=== PATIENT | female | born 1945 | race Caucasian/White ===

== ENCOUNTER 2017-04-11 18:47 | Observation (INO) | payer MEDICARE ==
[2017-04-11] MEDS ORDERED: HYDROmorphone 1 MG/ML 1 ML SYRINGE IVP STA (19:29)
[2017-04-11] MEDS ORDERED: ONDANSETRON 4 MG/2 ML VIAL IVP STA (19:29)
[2017-04-11 19:40] LABS: Basophils # (A) 0.1 k/uL (0-0.2); Basophils % (A) 1 %; CH 29.2; CHCM 31.7; Eosinophils # (A) 0.6 k/uL (0-0.7); Eosinophils % (A) 6 %; HCT 38.5 % (34.0-46.0); HDW 2.23; HGB 12.4 gm/dL (11.4-16.0); Luc % (Auto) 2; Lymphocytes # (A) 1.2 k/uL (1.0-4.8); Lymphocytes % (A) 13 %; MCH 29.8 pg (25.0-35.0); MCHC 32.1 g/dL (31.0-37.0); MCV 92.8 fL (80.0-100.0); Mean Platelet Volume 8.2; Monocytes # (A) 0.4 k/uL (0-1.0); Monocytes % (A) 4 %; Neutrophils # (A) 6.8 k/uL (1.3-7.7); Neutrophils % (A) 74 %; RBC 4.15 m/uL (3.80-5.40); RDW 13.6 % (11.5-15.5); WBC 9.2 k/uL (3.8-10.6); WBC (Perox) 9.58
[2017-04-11 19:49] LABS: Partial Thromboplastin Time 22.6 sec (22.0-30.0); Prothrombin Time 10.4 sec (9.0-12.0)
--- NOTE | 2017-04-11 20:05 | XR ---
EXAMINATION TYPE: XR chest 2V DATE OF EXAM: 04/11/2017 COMPARISON: 05/29/2016 HISTORY: Chest pain today while resting TECHNIQUE: Frontal and lateral views of the chest are obtained. FINDINGS: There is no focal air space opacity, pleural effusion, or pneumothorax seen. The cardiac silhouette size is within normal limits. The osseous structures are intact. Mild degenerative bunch es are appreciated of the acromio clavicular joint and thoracic spine. IMPRESSION: No acute cardiopulmonary process.
[2017-04-11 20:13] LABS: Calcium 9.6 mg/dL (8.4-10.2); Magnesium 1.6 mg/dL (1.6-2.3); Potassium 5.5 mmol/L (3.5-5.1); Total Bilirubin 0.5 mg/dL (0.2-1.3); Total Protein 7.3 g/dL (6.3-8.2)
--- NOTE | 2017-04-11 20:13 | ED ---
General Adult HPI - General Chief complaint: Chest Pain Stated complaint: CHEST PAIN Time Seen by Provider: 04/11/17 19:27 Source: patient, RN notes reviewed, old records reviewed Mode of arrival: wheelchair Limitations: no limitations - History of Present Illness Initial comments: This is a 72-year-old female ER for evaluation of chest pain. He doesn't from diabetes, no prior heart disease, no prior heart attacks. No recent cardiac evaluation. Patient denies fever cough or congestion, aching does have continued just appeared chest pains or [place] while sleeping, is no improvement. Patient concerned that she may be having a heart attack - Related Data Home Medications Medication Instructions Recorded Confirmed Aspirin [Adult Low Dose Aspirin EC] 81 mg PO DAILY 05/28/16 04/11/17 Insulin Detemir [Levemir] 5 - 10 unit SQ HS 05/28/16 04/11/17 Lisinopril [Zestril] 10 mg PO DAILY 05/28/16 04/11/17 metFORMIN HCL 1,000 mg PO AC-BRKFST 05/28/16 04/11/17 metFORMIN HCL [Glucophage] 500 mg PO AC-SUPPER 05/28/16 04/11/17 Insulin Aspart [NovoLOG Flexpen] 2 - 4 units SQ AC-TID PRN 05/29/16 04/11/17 Multivitamins, Thera [Multivitamin] 1 tab PO DAILY 05/29/16 04/11/17 Vitamin B Complex 1 cap PO DAILY 05/29/16 04/11/17 Atenolol [Tenormin] 50 mg PO DAILY 04/11/17 04/11/17 Ferrous Sulfate [Feosol] 325 mg PO DAILY 04/11/17 04/11/17 Allergies Allergy/AdvReac Type Severity Reaction Status Date / Time Sulfa (Sulfonamide Allergy Rash/Hives Verified 04/11/17 19:47 Antibiotics) Review of Systems ROS Statement: Those systems with pertinent positive or pertinent negative responses have been documented in the HPI. ROS Other: All systems not noted in ROS Statement are negative. Past Medical History Past Medical History: Cancer, Diabetes Mellitus, GERD/Reflux, Hyperlipidemia, Hypertension Additional Past Medical History / Comment(s): chronic back pain, DIVERTICULOSIS( PER COLONOSCOPY), KIDNEY STONE 2012(PASSED IT),? [place]- PT STATED THAT [address] HAD DONE AN EKG ON HER AND ASKED HER -WHEN DIDYOU HAVE A HEART ATTACK? . UTERINE CA HAD SX ONLY, ECZEMA ON HANDS. RECENT DIFFICULTY SWALLOWING CAME IN AND HAD LAP BAND LOOSED History of Any Multi-Drug Resistant Organisms: None Reported Past Surgical History: Back Surgery, Bariatric Surgery, Hysterectomy, Tonsillectomy Additional Past Surgical History / Comment(s): lap band, carpal tunnel,LT ear drum surgery, cervical fusion, COLONOSCOPY 2012, TOTAL HYSTERECTOMY, D/T CANCER.SUE CATARACTS. BARIUM SWALLOW 05-28-16. Past Anesthesia/Blood Transfusion Reactions: No Reported Reaction Past Psychological History: No Psychological Hx Reported Additional Psychological History / Comment(s): PT IS LIVES AT HOME WITH HER SPOUSE. IS INDEPENDANT. IS RETIRED-USED TO [employer]. Smoking Status: Former smoker Past Alcohol Use History: None Reported Additional Past Alcohol Use History / Comment(s): STARTED SMOKING AT AGE 14 QUIT AT AGE 37, WAS SMOKING <1PPD Past Drug Use History: None Reported - Past Family History Father Family Medical History: Diabetes Mellitus Additional Family Medical History / Comment(s): PACEMAKER Mother Family Medical History: Dementia Additional Family Medical History / Comment(s): ALZHEIMERS General Exam Limitations: no limitations General appearance: alert, in no apparent distress Head exam: Present: atraumatic, normocephalic, normal inspection Eye exam: Present: normal appearance, PERRL, EOMI. Absent: scleral icterus, conjunctival injection, periorbital swelling ENT exam: Present: normal exam, mucous membranes moist Neck exam: Present: normal inspection. Absent: tenderness, meningismus, lymphadenopathy Respiratory exam: Present: normal lung sounds bilaterally. Absent: respiratory distress, wheezes, rales, rhonchi, stridor Cardiovascular Exam: Present: regular rate, normal rhythm, normal heart sounds. Absent: systolic murmur, diastolic murmur, rubs, gallop, clicks GI/Abdominal exam: Present: soft, normal bowel sounds. Absent: distended, tenderness, guarding, rebound, rigid Extremities exam: Present: normal inspection, full ROM, normal capillary refill. Absent: tenderness, pedal edema, joint swelling, calf tenderness Back exam: Present: normal inspection Neurological exam: Present: alert, oriented X3, CN II-XII intact Psychiatric exam: Present: normal affect, normal mood Skin exam: Present: warm, dry, intact, normal color. Absent: rash Course Vital Signs 04/11/17 04/11/17 18:51 20:36 Temperature 97.2 F L Pulse Rate 68 60 Respiratory 18 16 Rate Blood Pressure 110/58 108/54 O2 Sat by Pulse 99 100 Oximetry - Reevaluation(s) Reevaluation #1: 04/11/17 21:12 Patient is in no acute distress, no diaphoresis or shortness of breath EKG Findings - EKG Comments: EKG Findings:: EKG shows normal sinus rhythm rate of 54 DE 172, QRS 80, QTC 438 Medical Decision Making - Medical Decision Making Female year with history of diabetes coming in with chest pain today. No prior cardiac evaluation. Patient having chest pain for a day and a half, unable to sleep last night secondary to pain. EKGs were negative patient will be admitted for cardiac observation - Lab Data Result diagrams: 04/11/17 19:26 04/11/17 19:26 Lab Results 04/11/17 04/11/17 04/11/17 Range/Units 19:26 19:26 19:26 WBC 9.2 (3.8-10.6) k/uL RBC 4.15 (3.80-5.40) m/uL Hgb 12.4 (11.4-16.0) gm/dL Hct 38.5 (34.0-46.0) % MCV 92.8 (80.0-100.0) fL MCH 29.8 (25.0-35.0) pg MCHC 32.1 (31.0-37.0) g/dL RDW 13.6 (11.5-15.5) % Plt Count 261 (150-450) k/uL Neutrophils % 74 % Lymphocytes % 13 % Monocytes % 4 % Eosinophils % 6 % Basophils % 1 % Neutrophils # 6.8 (1.3-7.7) k/uL Lymphocytes # 1.2 (1.0-4.8) k/uL Monocytes # 0.4 (0-1.0) k/uL Eosinophils # 0.6 (0-0.7) k/uL Basophils # 0.1 (0-0.2) k/uL PT (9.0-12.0) sec INR (<1.1) APTT (22.0-30.0) sec Sodium 142 (137-145) mmol/L Potassium 5.5 H (3.5-5.1) mmol/L Chloride 111 H (98-107) mmol/L Carbon Dioxide 19 L (22-30) mmol/L Anion Gap 12 mmol/L BUN 32 H (7-17) mg/dL Creatinine 1.25 H (0.52-1.04) mg/dL Est GFR (MDRD) Af Amer 51 (>60 ml/min/1.73 sqM) Est GFR (MDRD) Non-Af 42 (>60 ml/min/1.73 sqM) Glucose 91 (74-99) mg/dL Calcium 9.6 (8.4-10.2) mg/dL Magnesium 1.6 (1.6-2.3) mg/dL Total Bilirubin 0.5 (0.2-1.3) mg/dL AST 30 (14-36) U/L ALT 30 (9-52) U/L Alkaline Phosphatase 59 (38-126) U/L Total Creatine Kinase 124 (30-135) U/L CK-MB (CK-2) 1.2 (0.0-2.4) ng/mL CK-MB (CK-2) Rel Index 1.0 Troponin I <0.012 (0.000-0.034) ng/mL NT-Pro-B Natriuret Pep pg/mL Total Protein 7.3 (6.3-8.2) g/dL Albumin 4.1 (3.5-5.0) g/dL Lipase 278 (23-300) U/L 04/11/17 04/11/17 Range/Units 19:26 19:26 WBC (3.8-10.6) k/uL RBC (3.80-5.40) m/uL Hgb (11.4-16.0) gm/dL Hct (34.0-46.0) % MCV (80.0-100.0) fL MCH (25.0-35.0) pg MCHC (31.0-37.0) g/dL RDW (11.5-15.5) % Plt Count (150-450) k/uL Neutrophils % % Lymphocytes % % Monocytes % % Eosinophils % % Basophils % % Neutrophils # (1.3-7.7) k/uL Lymphocytes # (1.0-4.8) k/uL Monocytes # (0-1.0) k/uL Eosinophils # (0-0.7) k/uL Basophils # (0-0.2) k/uL PT 10.4 (9.0-12.0) sec INR 1.0 (<1.1) APTT 22.6 (22.0-30.0) sec Sodium (137-145) mmol/L Potassium (3.5-5.1) mmol/L Chloride (98-107) mmol/L Carbon Dioxide (22-30) mmol/L Anion Gap mmol/L BUN (7-17) mg/dL Creatinine (0.52-1.04) mg/dL Est GFR (MDRD) Af Amer (>60 ml/min/1.73 sqM) Est GFR (MDRD) Non-Af (>60 ml/min/1.73 sqM) Glucose (74-99) mg/dL Calcium (8.4-10.2) mg/dL Magnesium (1.6-2.3) mg/dL Total Bilirubin (0.2-1.3) mg/dL AST (14-36) U/L ALT (9-52) U/L Alkaline Phosphatase (38-126) U/L Total Creatine Kinase (30-135) U/L CK-MB (CK-2) (0.0-2.4) ng/mL CK-MB (CK-2) Rel Index Troponin I (0.000-0.034) ng/mL NT-Pro-B Natriuret Pep 195 pg/mL Total Protein (6.3-8.2) g/dL Albumin (3.5-5.0) g/dL Lipase (23-300) U/L - Radiology Data Radiology results: report reviewed (Chest x-ray is negative for acute disease), image reviewed Critical Care Time Critical Care Time: Yes Total Critical Care Time: 31 Disposition Clinical Impression: Unstable angina pectoris, Chest pain Disposition: ADMITTED IP TO THIS [facility] Condition: Good Instructions: Chest Pain (ED) Referrals: Wendi Bonner MD [Primary Care Provider] - 1-2 days
[2017-04-11 20:18] LABS: Creatine Kinase 124 U/L (30-135)
[2017-04-11 20:31] LABS: Creatine Kinase MB 1.2 ng/mL (0.0-2.4); Troponin I <0.012 ng/mL (0.000-0.034)
[2017-04-11 20:38] VITALS: RESP 16
[2017-04-11] MEDS ORDERED: NITROGLYCERIN SL TABS 0.4 MG TAB SUBLINGUAL PRN (21:06)
[2017-04-11] MEDS ORDERED: ASPIRIN 81 MG CHEW PO STA (21:06)
[2017-04-11] MEDS ORDERED: HEPARIN SODIUM,PORCINE 5,000 UNIT/ML 1 ML VIAL IV ONE (21:06)
[2017-04-11] MEDS ORDERED: HEPARIN SODIUM,PORCINE 5,000 UNIT/ML 1 ML VIAL IV PRN (21:06)
[2017-04-11] MEDS ORDERED: HEPARIN SODIUM,PORCINE/D5W PMX 25,000 UNIT in DEXTROSE/WATER 1 500ML.BAG IV SCH (21:15)
[2017-04-11] MEDS ORDERED: SODIUM CHLORIDE 0.9% 1,000 ML IV SCH (21:15)
[2017-04-11] MEDS ORDERED: INSULIN DETEMIR 100 UNIT/ML 10 ML VIAL SQ SCH (23:00)
[2017-04-11 23:11] LABS: Glucose,Whole Blood 106 mg/dL (75-99)
[2017-04-12 02:43] LABS: Mean Platelet Volume 8.1
[2017-04-12 03:07] LABS: Creatine Kinase 92 U/L (30-135)
[2017-04-12 03:20] LABS: Creatine Kinase MB 1.5 ng/mL (0.0-2.4); Troponin I <0.012 ng/mL (0.000-0.034)
[2017-04-12 03:47] LABS: Cholesterol 229 mg/dL (<200); HDL Cholesterol 40 mg/dL (40-60); Triglycerides 260 mg/dL (<150)
[2017-04-12 06:58] LABS: Glucose,Whole Blood 87 mg/dL (75-99)
[2017-04-12] MEDS ORDERED: metFORMIN 500 MG TAB PO SCH ×2 (07:30→17:30)
[2017-04-12] MEDS: INSULIN LISPRO (humaLOG) 300 UNIT/3 ML VIAL SQ SCH ×2 (08:05→12:05)
--- NOTE | 2017-04-12 08:36 | CONS ---
DATE OF CONSULTATION: CHIEF COMPLAINT: Chest pain. Yuki is a 72-year-old lady with history of hypertension and [id number] diabetes who was admitted to hospital with chest pain. She describes it as a sharp, left-sided chest pain. It came on after she was working in the garden yesterday. She has done unusual physical activity. It seem musculoskeletal, got worse with movements and resolved with rest. Patient had chest pain a year ago and underwent a Lexiscan at that time that showed normal myocardial perfusion function. Her EKG shows sinus rhythm with left bundle branch block. Two sets of cardiac enzymes have been negative. Given the atypical nature of her chest pain and the fact that she had a stress test within the last one year, I believe she does not require any further cardiac workup at this time. She is stable to be discharged home and follow up with her own primary care physician and set up an appointment with Cardiology in 6 to 8 weeks' time. Past medical history is significant for diabetes, hypertension. Medications include Glucophage, Levemir, iron, multivitamin, Zestril, Tenormin and aspirin. Allergic to SULFA and SHELLFISH. Family history is negative for premature coronary artery disease. Social history is negative for smoking, EtOH abuse, or drug abuse. REVIEW OF SYSTEMS: HEENT: Unremarkable. CARDIAC: As described above. RESPIRATORY: Negative. GI: Negative. GENITOURINARY: Negative. ALLERGY/IMMUNOLOGY: Negative. MUSCULOSKELETAL: Significant for arthritis. PSYCHOSOCIAL: Negative. ENDOCRINE: Negative. HEMATOLOGICAL: Negative. DERMATOLOGY: Negative. CONSTITUTIONAL: Negative. ONCOLOGICAL: Negative. The rest of the system review is not relevant. On exam, comfortable at rest. Vital signs are stable. There is no jugular venous distention. Carotid upstroke is normal. There is no bruit. Chest exam reveals good air entry bilaterally. Heart exam reveals first and second heart sounds. No gallop. No murmur, no rub. Abdomen is soft, nontender. Exam of the extremities did not reveal edema. Peripheral pulses are felt. INFORMATICS PHYSICIAN LIAISON exam did not reveal focal neurological deficits. ASSESSMENT: Chest pain, atypical, probably musculoskeletal. Had a negative stress test a year ago, does not require further workup at this time. Patient can be discharged home.
[2017-04-12 08:43] LABS: Creatine Kinase 99 U/L (30-135)
[2017-04-12 08:57] LABS: Creatine Kinase MB 1.2 ng/mL (0.0-2.4); Troponin I <0.012 ng/mL (0.000-0.034)
[2017-04-12] MEDS ORDERED: ATENOLOL 50 MG TAB PO SCH (09:00)
[2017-04-12] MEDS ORDERED: FERROUS SULFATE 325 MG TAB PO SCH (09:00)
[2017-04-12] MEDS ORDERED: LISINOPRIL 10 MG TAB PO SCH (09:00)
[2017-04-12] MEDS ORDERED: MULTIVITAMINS, THERA 1 EACH TAB PO SCH (09:00)
[2017-04-12] MEDS ORDERED: ASPIRIN 325 MG TAB PO SCH (09:00)
[2017-04-12 10:00] LABS: Anion Gap 9 mmol/L; Blood Urea Nitrogen 28 mg/dL (7-17); Calcium 9.6 mg/dL (8.4-10.2); Carbon Dioxide 25 mmol/L (22-30); Chloride 109 mmol/L (98-107); Glucose 114 mg/dL (74-99); Non-African American GFR(MDRD) 53 (>60 ml/min/1.73 sqM); Potassium 4.7 mmol/L (3.5-5.1); Sodium 143 mmol/L (137-145)
[2017-04-12 10:01] LABS: Basophils # (A) 0.1 k/uL (0-0.2); Basophils % (A) 1 %; CH 28.9; CHCM 30.5; Eosinophils # (A) 0.6 k/uL (0-0.7); Eosinophils % (A) 9 %; HCT 39.4 % (34.0-46.0); HDW 2.33; HGB 12.6 gm/dL (11.4-16.0); Hypochromasia Slight; Luc # (Auto) 0.22; Luc % (Auto) 3; Lymphocytes # (A) 1.6 k/uL (1.0-4.8); Lymphocytes % (A) 22 %; MCH 30.4 pg (25.0-35.0); Mean Platelet Volume 8.2; Monocytes # (A) 0.5 k/uL (0-1.0); Monocytes % (A) 7 %; Neutrophils # (A) 4.3 k/uL (1.3-7.7); Neutrophils % (A) 59 %; RBC 4.15 m/uL (3.80-5.40); WBC 7.2 k/uL (3.8-10.6); WBC (Perox) 7.52
[2017-04-12 11:56] LABS: Glucose,Whole Blood 97 mg/dL (75-99)
[2017-04-12] MEDS ORDERED: B COMPLEX-VIT C-VIT E-ZINC 1 EACH TAB PO SCH (12:00)
[2017-04-12 12:13] VITALS: BP 114/63; PULSE 60; TEMP 98.4
--- NOTE | 2017-04-12 16:27 | P.HPIM ---
History of Present Illness H&P Date: 04/12/17 72-year-old female with no previous medical history of coronary disease comes in the hospital with acute onset chest pain stated that she has been physically after work in garden over the last few days. Comes in with this sharp chest pain no diaphoresis noted no reproducibility noted Patient had an EKG in the ER which did not reveal ST-T wave changes. No radiation of pain is reported At the time of my evaluation patient is symptom-free no headaches blurry vision nausea vomiting or diarrhea Cardiac enzymes 3 were negative Denies reproducibility on pain on flexion of the left arm Review of Systems All systems: negative (Noted in HPI.) Past Medical History Past Medical History: Cancer, Diabetes Mellitus, GERD/Reflux, Hyperlipidemia, Hypertension Additional Past Medical History / Comment(s): anemia, chronic back pain, DIVERTICULOSIS(PER COLONOSCOPY), KIDNEY STONE 2012(PASSED IT),? [place]- PT STATED THAT [address] HAD DONE AN EKG ON HER AND ASKED HER -WHEN DIDYOU HAVE A HEART ATTACK?. UTERINE CA HAD SX ONLY, ECZEMA ON HANDS. RECENT DIFFICULTY SWALLOWING CAME IN AND HAD LAP BAND LOOSED History of Any Multi-Drug Resistant Organisms: None Reported Past Surgical History: Back Surgery, Bariatric Surgery, Hysterectomy, Tonsillectomy Additional Past Surgical History / Comment(s): lap band, carpal tunnel,LT ear drum surgery, cervical fusion, COLONOSCOPY 2012, TOTAL HYSTERECTOMY, D/T CANCER.SUE CATARACTS. BARIUM SWALLOW 05-28-16. Past Anesthesia/Blood Transfusion Reactions: No Reported Reaction Past Psychological History: No Psychological Hx Reported Additional Psychological History / Comment(s): PT IS LIVES AT HOME WITH HER SPOUSE. IS INDEPENDANT. IS RETIRED-USED TO [employer] [employer]. Smoking Status: Former smoker Past Alcohol Use History: None Reported Additional Past Alcohol Use History / Comment(s): STARTED SMOKING AT AGE 14 QUIT AT AGE 37, WAS SMOKING <1PPD Past Drug Use History: None Reported - Past Family History Father Family Medical History: Diabetes Mellitus Additional Family Medical History / Comment(s): PACEMAKER Mother Family Medical History: Dementia Additional Family Medical History / Comment(s): ALZHEIMERS Medications and Allergies Home Medications Medication Instructions Recorded Confirmed Type Aspirin [Adult Low Dose Aspirin EC] 81 mg PO DAILY 05/28/16 04/11/17 History Insulin Detemir [Levemir] 5 - 10 unit SQ HS 05/28/16 04/11/17 History Lisinopril [Zestril] 10 mg PO DAILY 05/28/16 04/11/17 History metFORMIN HCL 1,000 mg PO AC-BRKFST 05/28/16 04/11/17 History metFORMIN HCL [Glucophage] 500 mg PO AC-SUPPER 05/28/16 04/11/17 History Insulin Aspart [NovoLOG Flexpen] 2 - 4 units SQ AC-TID PRN 05/29/16 04/11/17 History Multivitamins, Thera [Multivitamin 1 tab PO DAILY 05/29/16 04/11/17 History (formulary)] Vitamin B Complex 1 cap PO DAILY 05/29/16 04/11/17 History Atenolol [Tenormin] 50 mg PO DAILY 04/11/17 04/11/17 History Ferrous Sulfate [Iron (65 MG 325 mg PO DAILY 04/11/17 04/11/17 History Elemental)] Allergies Allergy/AdvReac Type Severity Reaction Status Date / Time shellfish derived Allergy Dyspnea Verified 04/11/17 22:23 Sulfa (Sulfonamide Allergy Rash/Hives Verified 04/11/17 19:47 Antibiotics) venom-honey bee Allergy Swelling Verified 04/11/17 22:23 Physical Exam Vitals: Vital Signs Temp Pulse Pulse Resp BP BP Pulse Ox 04/12/17 12:00 98.4 F 60 16 114/63 98 04/12/17 08:00 98.0 F 53 L 16 117/53 97 04/12/17 04:00 97.8 F 56 L 16 101/40 96 04/12/17 03:59 55 L 16 04/11/17 22:45 66 16 04/11/17 21:46 98.1 F 69 16 110/55 97 04/11/17 20:36 60 16 108/54 100 04/11/17 18:51 97.2 F L 68 18 110/58 99 Intake and Output 04/12/17 04/12/17 04/12/17 06:59 14:59 22:59 Other: Voiding Method Toilet Toilet # Voids 2 Physical exam Gen. appearance oriented 3 in no distress Neck is supple no JVD Lungs good air entry clear to auscultation no rhonchi or wheezing Heart S1-S2 heard regular rate and rhythm no murmurs appreciated Abdomen is soft nontender no organomegaly bowel sounds are intact Neurologically cranial nerves II-12 grossly intact no focal motor or sensory deficits noted Skin no abnormalities appreciated Results CBC & Chem 7: 04/12/17 08:20 04/12/17 08:20 Labs: Abnormal Lab Results - Last 24 Hours (Table) 04/11/17 04/11/17 04/12/17 Range/Units 19:26 23:08 02:30 APTT (22.0-30.0) sec Potassium 5.5 H (3.5-5.1) mmol/L Chloride 111 H (98-107) mmol/L Carbon Dioxide 19 L (22-30) mmol/L BUN 32 H (7-17) mg/dL Creatinine 1.25 H (0.52-1.04) mg/dL Glucose (74-99) mg/dL POC Glucose (mg/dL) 106 H (75-99) mg/dL Triglycerides 260 H (<150) mg/dL Cholesterol 229 H (<200) mg/dL LDL Cholesterol, Calc 137 H (0-99) mg/dL 04/12/17 04/12/17 04/12/17 Range/Units 02:30 08:10 08:20 APTT 57.6 H 42.3 H (22.0-30.0) sec Potassium (3.5-5.1) mmol/L Chloride 109 H (98-107) mmol/L Carbon Dioxide (22-30) mmol/L BUN 28 H (7-17) mg/dL Creatinine (0.52-1.04) mg/dL Glucose 114 H (74-99) mg/dL POC Glucose (mg/dL) (75-99) mg/dL Triglycerides (<150) mg/dL Cholesterol (<200) mg/dL LDL Cholesterol, Calc (0-99) mg/dL Thrombosis Risk Factor Assmnt - Choose All That Apply Each Factor Represents 1 point: Obesity (BMI >25) Each Risk Factor Represents 2 Points: Age 61-74 years, Malignancy Thrombosis Risk Factor Assessment Total Risk Factor Score: 5 Thrombosis Risk Factor Assessment Level: High Risk Assessment and Plan Plan: #1 atypical chest pain ACS is ruled out patient is symptom-free patient can follow up with Dr. Hood on an outpatient basis #2 diabetes most type II 3 hypertension #4 remote history of smoking #5 dyslipidemia Plan ACS is ruled out patient is encouraged to ambulate if symptom free patient is discharged home No change in medications this is a discharge summary as well.
== END 2017-04-12 15:38 | disposition home or self-care (01) ==
LOC: EC 18:47 → 3OBS 21:06
PROVIDERS: ADMIT Internal Medicine; ATTEND Internal Medicine
DX: R07.89 Other chest pain (principal); E11.9 Type 2 diabetes mellitus without complications; I10 Essential (primary) hypertension; E78.5 Hyperlipidemia, unspecified; D64.9 Anemia, unspecified; Z98.84 Bariatric surgery status; Z85.42 Personal history of malignant neoplasm of other parts of uterus; Z87.891 Personal history of nicotine dependence; Z82.0 Family history of epilepsy and other diseases of the nervous system; Z79.899 Other long term (current) drug therapy; Z79.82 Long term (current) use of aspirin; Z79.84 Long term (current) use of oral hypoglycemic drugs; Z79.4 Long term (current) use of insulin; Z91.030 Bee allergy status; Z91.013 Allergy to seafood; Z88.2 Allergy status to sulfonamides
CPT/HCPCS: 99291; 96376 ×2; 96365; 96366 ×2; 36415; 93005; 83880; 80061; 80053; 80048; 83036; 82550 ×2; 82553 ×2; 83690; 83735; 84484 ×2; 85025 ×2; 85049; 85610; 85730 ×2; 71020; G0378 ×2; J1644 ×2

== ENCOUNTER 2019-02-28 12:52 | Emergency (ER) | payer MEDICARE ==
[2019-02-28] MEDS ORDERED: SODIUM CHLORIDE 0.9% 1,000 ML IV STA (13:03)
[2019-02-28 13:36] LABS: Basophils % (A) 0 %; Eosinophils # (A) 0.4 k/uL (0-0.7); Eosinophils % (A) 4 %; HCT 36.1 % (34.0-46.0); HGB 11.5 gm/dL (11.4-16.0); Lymphocytes # (A) 1.1 k/uL (1.0-4.8); Lymphocytes % (A) 12 %; MCHC 31.9 g/dL (31.0-37.0); MCV 87.6 fL (80.0-100.0); Mean Platelet Volume 8.6; Monocytes # (A) 0.3 k/uL (0-1.0); Monocytes % (A) 3 %; Neutrophils # (A) 7.5 k/uL (1.3-7.7); Neutrophils % (A) 79 %; Platelet Count 351 k/uL (150-450); RBC 4.12 m/uL (3.80-5.40); RDW 14.1 % (11.5-15.5); WBC 9.5 k/uL (3.8-10.6)
--- NOTE | 2019-02-28 13:38 | ED ---
Back Pain HPI - General Chief Complaint: Back Pain/Injury Stated Complaint: Kidney pain Time Seen by Provider: 02/28/19 12:59 Source: patient, RN notes reviewed Limitations: no limitations - History of Present Illness Initial Comments: 74-year-old female presents emergency Department chief complaint of low back pain, right leg pain. Patient states this started night and has progressed. Patient states she cannot tolerate the pain this morning. Patient states pains worse when she sits or lays down. It is much better when she stands. She is able to walk without difficulty. Denies any bowel bladder incontinence or retention. Denies any abdominal complaints including nausea, vomiting, diarrhea, dysuria or hematuria. Patient states pain is worse with twisting bending. - Related Data Home Medications Medication Instructions Recorded Confirmed Aspirin [Adult Low Dose Aspirin EC] 81 mg PO DAILY 05/28/16 04/11/17 Insulin Detemir (Levemir) [Levemir] 5 - 10 unit SQ HS 05/28/16 04/11/17 Lisinopril [Zestril] 10 mg PO DAILY 05/28/16 04/11/17 metFORMIN HCL 1,000 mg PO AC-BRKFST 05/28/16 04/11/17 metFORMIN HCL [Glucophage] 500 mg PO AC-SUPPER 05/28/16 04/11/17 Insulin Aspart [NovoLOG Flexpen] 2 - 4 units SQ AC-TID PRN 05/29/16 04/11/17 Multivitamins, Thera [Multivitamin 1 tab PO DAILY 05/29/16 04/11/17 (formulary)] Vitamin B Complex 1 cap PO DAILY 05/29/16 04/11/17 Atenolol [Tenormin] 50 mg PO DAILY 04/11/17 04/11/17 Ferrous Sulfate [Iron (65 MG 325 mg PO DAILY 04/11/17 04/11/17 Elemental)] Previous Rx's Medication Instructions Recorded Hydrocodone/Acetaminophen [[place] 1 tab PO Q6HR PRN #12 tab 02/28/19 5-325] Ibuprofen [Motrin] 600 mg PO Q8HR PRN #20 tab 02/28/19 Allergies Allergy/AdvReac Type Severity Reaction Status Date / Time shellfish derived Allergy Dyspnea Verified 04/11/17 22:23 Sulfa (Sulfonamide Allergy Rash/Hives Verified 04/11/17 19:47 Antibiotics) venom-honey bee Allergy Swelling Verified 04/11/17 22:23 Review of Systems ROS Statement: Those systems with pertinent positive or pertinent negative responses have been documented in the HPI. ROS Other: All systems not noted in ROS Statement are negative. Past Medical History Past Medical History: Cancer, Diabetes Mellitus, GERD/Reflux, Hyperlipidemia, Hypertension Additional Past Medical History / Comment(s): anemia, chronic back pain, DIVERTICULOSIS(PER COLONOSCOPY), KIDNEY STONE 2012(PASSED IT),? MD- PT STATED THAT [address] HAD DONE AN EKG ON HER AND ASKED HER -WHEN DIDYOU HAVE A HEART ATTACK?. UTERINE CA HAD SX ONLY, ECZEMA ON HANDS. RECENT DIFFICULTY SWALLOWING CAME IN AND HAD LAP BAND LOOSED History of Any Multi-Drug Resistant Organisms: None Reported Past Surgical History: Back Surgery, Bariatric Surgery, Hysterectomy, Ton sillectomy Additional Past Surgical History / Comment(s): lap band, carpal tunnel,LT ear drum surgery, cervical fusion, COLONOSCOPY 2012, TOTAL HYSTERECTOMY, D/T CANCER.SUE CATARACTS. BARIUM SWALLOW 05-28-16. Past Anesthesia/Blood Transfusion Reactions: No Reported Reaction Past Psychological History: No Psychological Hx Reported Smoking Status: Former smoker Past Alcohol Use History: None Reported Past Drug Use History: None Reported - Past Family History Father Family Medical History: Diabetes Mellitus Additional Family Medical History / Comment(s): PACEMAKER Mother Family Medical History: Dementia Additional Family Medical History / Comment(s): ALZHEIMERS General Exam Limitations: no limitations General appearance: alert, in no apparent distress Head exam: Present: atraumatic, normocephalic, normal inspection Neck exam: Present: normal inspection. Absent: tenderness, meningismus, ly mphadenopathy Respiratory exam: Present: normal lung sounds bilaterally. Absent: respiratory distress, wheezes, rales, rhonchi, stridor Cardiovascular Exam: Present: regular rate, normal rhythm, normal heart sounds. Absent: systolic murmur, diastolic murmur, rubs, gallop, clicks GI/Abdominal exam: Present: soft, normal bowel sounds. Absent: distended, tenderness, guarding, rebound, rigid Extremities exam: Present: other (Lower extremity strength equal neurovascular intact, equal color equal warmth pedal pulses equal) Back exam: Present: full ROM, tenderness, paraspinal tenderness. Absent: vertebral tenderness Neurological exam: Present: alert, oriented X3, CN II-XII intact, reflexes normal. Absent: motor sensory deficit Skin exam: Present: warm, dry, intact, normal color. Absent: rash Course Vital Signs 02/28/19 13:01 Temperature 98.0 F Pulse Rate 65 Respiratory 18 Rate Blood Pressure 126/76 O2 Sat by Pulse 100 Oximetry Medical Decision Making - Medical Decision Making 74-year-old female presented for right leg pain, right low back pain. Patient symptoms are consistent with lumbar radiculopathy. Patient is labwork, urinalysis, x-ray. X-ray shows evidence of degenerative changes. Patient's pain is improved at this time. Patient will be discharged with follow-up with PCP and orthopedics. - Lab Data Result diagrams: 02/28/19 13:19 02/28/19 13:19 Lab Results 02/28/19 02/28/19 02/28/19 Range/Units 13:19 13:19 13:39 WBC 9.5 (3.8-10.6) k/uL RBC 4.12 (3.80-5.40) m/uL Hgb 11.5 (11.4-16.0) gm/dL Hct 36.1 (34.0-46.0) % MCV 87.6 (80.0-100.0) fL MCH 28.0 (25.0-35.0) pg MCHC 31.9 (31.0-37.0) g/dL RDW 14.1 (11.5-15.5) % Plt Count 351 (150-450) k/uL Neutrophils % 79 % Lymphocytes % 12 % Monocytes % 3 % Eosinophils % 4 % Basophils % 0 % Neutrophils # 7.5 (1.3-7.7) k/uL Lymphocytes # 1.1 (1.0-4.8) k/uL Monocytes # 0.3 (0-1.0) k/uL Eosinophils # 0.4 (0-0.7) k/uL Basophils # 0.0 (0-0.2) k/uL Sodium 141 (137-145) mmol/L Potassium 5.1 (3.5-5.1) mmol/L Chloride 109 H (98-107) mmol/L Carbon Dioxide 21 L (22-30) mmol/L Anion Gap 11 mmol/L BUN 22 H (7-17) mg/dL Creatinine 0.98 (0.52-1.04) mg/dL Est GFR (CKD-EPI)AfAm 67 (>60 ml/min/1.73 sqM) Est GFR (CKD-EPI)NonAf 58 (>60 ml/min/1.73 sqM) Glucose 128 H (74-99) mg/dL Calcium 10.1 (8.4-10.2) mg/dL Total Bilirubin 0.7 (0.2-1.3) mg/dL AST 24 (14-36) U/L ALT 21 (9-52) U/L Alkaline Phosphatase 66 (38-126) U/L Total Protein 7.9 (6.3-8.2) g/dL Albumin 4.6 (3.5-5.0) g/dL Amylase 99 (30-110) U/L Lipase 150 (23-300) U/L Urine Color Yellow Urine Appearance Clear (Clear) Urine pH 7.0 (5.0-8.0) Ur Specific [place] 1.020 (1.001-1.035) Urine Protein Trace H (Negative) Urine Glucose (UA) Negative (Negative) Urine Ketones 1+ H (Negative) Urine Blood Negative (Negative) Urine Nitrite Negative (Negative) Urine Bilirubin Negative (Negative) Urine Urobilinogen <2.0 (<2.0) mg/dL Ur Leukocyte Esterase Small H (Negative) Urine RBC <1 (0-5) /hpf Urine WBC 6 H (0-5) /hpf Ur Squamous Epith Cells 1 (0-4) /hpf Urine Bacteria Rare H (None) /hpf Urine Mucus Rare H (None) /hpf Disposition Clinical Impression: Strain of lumbar region, Lumbar radiculopathy, acute Disposition: HOME SELF-CARE Condition: Stable Instructions (If sedation given, give patient instructions): Acute Low Back Pain (ED), Lower Back Exercises (ED) Additional Instructions: Please return to the Emergency Department if symptoms worsen or any other concerns. Apply heat and ice 20 minutes at a time. Prescriptions: Ibuprofen [Motrin] 600 mg PO Q8HR PRN #20 tab PRN Reason: Pain Hydrocodone/Acetaminophen [[place] 5-325] 1 tab PO Q6HR PRN #12 tab PRN Reason: Pain Is patient prescribed a controlled substance at d/c from ED?: Yes When asked, does pt state using other controlled substances?: Yes If prescribed controlled substance>3 days was MAPS reviewed?: Prescribed <3 Days If opioid is for acute pain is fill amount 7 days or less?: Yes If Rx opioid, was Start Talking consent form obtained?: Yes Referrals: Wendi Bonner MD [Primary Care Provider] - 1-2 days Christy Rocha DO [Doctor of Osteopathic Medicine] - 1-2 days Time of Disposition: 15:03
[2019-02-28 13:45] LABS: Albumin 4.6 g/dL (3.5-5.0); Calcium 10.1 mg/dL (8.4-10.2); Potassium 5.1 mmol/L (3.5-5.1); Total Bilirubin 0.7 mg/dL (0.2-1.3); Total Protein 7.9 g/dL (6.3-8.2)
[2019-02-28 13:51] LABS: Appearance,Urine Clear (Clear); Bacteria,Urine Rare /hpf; Bilirubin,Urine Negative (Negative); Blood,Urine Negative (Negative); Color,Urine Yellow; Glucose,Urine (UA) Negative (Negative); Ketones,Urine 1+ (Negative); Leukocyte Esterase,Urine Small (Negative); Mucus,Urine Rare /hpf; Nitrite,Urine Negative (Negative); Protein,Urine Trace (Negative); RBC,Urine <1 /hpf (0-5); Squamous Epithelial Cell,Urine 1 /hpf (0-4); Urobilinogen,Urine <2.0 mg/dL (<2.0)
[2019-02-28] MEDS ORDERED: ONDANSETRON 4 MG/2 ML VIAL IVP STA (13:59)
[2019-02-28] MEDS ORDERED: MORPHINE SULFATE 4 MG/ML SYRINGE IVP STA (13:59)
--- NOTE | 2019-02-28 14:53 | XR ---
EXAMINATION TYPE: XR lumbosacral spine min 4V DATE OF EXAM: 02/28/2019 COMPARISON: NONE HISTORY: 74-year-old female right-sided back pain TECHNIQUE: 5 views FINDINGS: 5 lumbar type vertebral bodies. Facet arthropathy lower lumbar spine. Mild multilevel degenerative di sc disease. More moderate disc height loss at L5-S1. Trace grade 1 anterolisthesis at L3-L4. Vertebra l body heights are preserved. Surgical clips projecting over the lower lumbar spine. Lap band is pres ent. IMPRESSION: 1. Facet arthropathy lower lumbar spine with trace grade 1 anterolisthesis at L3-L4. 2. Mild multilevel degenerative disc disease, more moderate at L5-S1. 3. No vertebral compression collapse.
[2019-02-28 15:19] VITALS: BP 145/70; PULSE 69; RESP 15; TEMP 98.7
== END 2019-02-28 15:24 | disposition home or self-care (01) ==
LOC: EC 12:52
DX: S39.012A Strain of muscle, fascia and tendon of lower back, initial encounter (principal); M51.17 Intervertebral disc disorders with radiculopathy, lumbosacral region; E11.9 Type 2 diabetes mellitus without complications; I10 Essential (primary) hypertension; I25.2 Old myocardial infarction; Z79.82 Long term (current) use of aspirin; Z79.4 Long term (current) use of insulin; Z79.899 Other long term (current) drug therapy; Z88.2 Allergy status to sulfonamides; Z91.013 Allergy to seafood; Z91.030 Bee allergy status; Z87.891 Personal history of nicotine dependence; Z85.42 Personal history of malignant neoplasm of other parts of uterus; Z98.84 Bariatric surgery status; Z90.710 Acquired absence of both cervix and uterus; X58.XXXA Exposure to other specified factors, initial encounter
CPT/HCPCS: 36415; 80053; 82150; 83690; 85025; 81001; 72110; 99283; 96374; 96375; 96361; J2270; J2405

== ENCOUNTER 2019-03-07 01:08 | Emergency (ER) | payer MEDICARE ==
[2019-03-07 01:32] VITALS: TEMP 98.9
[2019-03-07 01:43] LABS: Basophils # (A) 0.1 k/uL (0-0.2); Basophils % (A) 1 %; Eosinophils # (A) 0.4 k/uL (0-0.7); Eosinophils % (A) 6 %; HCT 34.8 % (34.0-46.0); HGB 11.4 gm/dL (11.4-16.0); Lymphocytes % (A) 16 %; MCH 27.9 pg (25.0-35.0); MCHC 32.9 g/dL (31.0-37.0); MCV 84.8 fL (80.0-100.0); Mean Platelet Volume 8.7; Monocytes # (A) 0.4 k/uL (0-1.0); Monocytes % (A) 6 %; Neutrophils # (A) 4.4 k/uL (1.3-7.7); Neutrophils % (A) 69 %; Platelet Count 283 k/uL (150-450); RDW 14.3 % (11.5-15.5); WBC 6.4 k/uL (3.8-10.6)
[2019-03-07 01:43] LABS: Glucose,Whole Blood 116 mg/dL (75-99)
[2019-03-07 01:43] LABS: Glucose,Whole Blood 108 mg/dL (75-99)
[2019-03-07 01:51] LABS: Potassium 4.4 mmol/L (3.5-5.1); Total Bilirubin 0.8 mg/dL (0.2-1.3); Total Protein 7.1 g/dL (6.3-8.2)
[2019-03-07 01:56] LABS: Prothrombin Time 10.7 sec (9.0-12.0)
[2019-03-07 02:06] LABS: Partial Thromboplastin Time 20.7 sec (22.0-30.0)
[2019-03-07 02:10] LABS: Creatine Kinase MB 0.4 ng/mL (0.0-2.4)
--- NOTE | 2019-03-07 02:11 | CT ---
EXAM: CT Head Without Intravenous Contrast CLINICAL HISTORY: ITS.REASON CT Reason: Neuro Deficits TECHNIQUE: Axial computed tomography images of the head/brain without intravenous contrast. This CT exam was performed using one or more of the following dose reduction techniques: automated exposure control, adjustment of the mA and/or kV according to patient size, and/or use of iterative reconstruction technique. COMPARISON: No relevant prior studies available. FINDINGS: Brain: No hemorrhage. No edema. Ventricles: Unremarkable. No ventriculomegaly. Bones/joints: No acute fracture. Soft tissues: Unremarkable. Sinuses: No fluid levels. Mastoid air cells: Unremarkable as visualized. No mastoid effusion. IMPRESSION: No acute intracranial findings <MYCVCSECTION> [employer] 03/07/19 02:18 Verify Receipt Verified receipt with JORGE Boyer. Report given to Dr. Bustos on 03/07 02:16 (-04:00)
--- NOTE | 2019-03-07 02:13 | CT ---
EXAM: CT Angiography Head Without And With Intravenous Contrast CLINICAL HISTORY: ITS.REASON CT Reason: Neuro Deficits TECHNIQUE: Axial computed tomographic angiography images of the head without and with intravenous contrast using CT angiography protocol. This CT exam was performed using one or more of the following dose reduction techniques: automated exposure control, adjustment of the mA and/or kV according to patient size, and/or use of iterative reconstruction technique. 3D reconstructed images were created and reviewed. COMPARISON: No relevant prior studies available. FINDINGS: VASCULATURE: Right internal carotid artery: No suspicious findings. Intracranial segment is patent with no significant stenosis. No aneurysm. Right anterior cerebral artery: Unremarkable. No occlusion or significant stenosis. No aneurysm. Right middle cerebral artery: Unremarkable. No occlusion or significant stenosis. No aneurysm. Right posterior cerebral artery: Unremarkable. No occlusion or significant stenosis. No aneurysm. Right vertebral artery: Unremarkable as visualized. Left internal carotid artery: No suspicious findings. Intracranial segment is patent with no significant stenosis. No aneurysm. Left anterior cerebral artery: Unremarkable. No occlusion or significant stenosis. No aneurysm. Left middle cerebral artery: Unremarkable. No occlusion or significant stenosis. No aneurysm. Left posterior cerebral artery: Unremarkable. No occlusion or significant stenosis. No aneurysm. Left vertebral artery: Unremarkable as visualized. Basilar artery: Unremarkable. No occlusion or significant stenosis. No aneurysm. HEAD: Brain: No suspicious findings. No hemorrhage. No edema. Normal enhancement. Ventricles: Unremarkable. No ventriculomegaly. Bones/joints: No acute fracture. Soft tissues: Unremarkable. Sinuses: Unremarkable as visualized. No acute sinusitis. Mastoid air cells: Unremarkable as visualized. No mastoid effusion. IMPRESSION: Normal head CTA. EXAM: CT Angiography Neck Without And With Intravenous Contrast CLINICAL HISTORY: ITS.REASON CT Reason: Neuro Deficits TECHNIQUE: Axial computed tomographic angiography images of the neck without and with intravenous contrast using CT angiography protocol. This CT exam was performed using one or more of the following dose reduction techniques: automated exposure control, adjustment of the mA and/or kV according to patient size, and/or use of iterative reconstruction technique. 3D reconstructed images were created and reviewed. COMPARISON: No relevant prior studies available. FINDINGS: VASCULATURE: Right common carotid artery: Unremarkable. No significant stenosis. No dissection or occlusion. Right internal carotid artery: Unremarkable. Extracranial segment is patent with no significant stenosis. No dissection or occlusion. Right external carotid artery: Unremarkable. No occlusion. Right vertebral artery: Unremarkable. No significant stenosis. No dissection or occlusion. Left common carotid artery: Unremarkable. No significant stenosis. No dissection or occlusion. Left internal carotid artery: Unremarkable. Extracranial segment is patent with no significant stenosis. No dissection or occlusion. Left external carotid artery: Unremarkable. No occlusion. Left vertebral artery: Unremarkable. No significant stenosis. No dissection or occlusion. NECK: Bones/joints: No acute fracture. No dislocation. Soft tissues: Unremarkable as visualized. No mass. CAROTID STENOSIS REFERENCE USING NASCET CRITERIA: % ICA stenosis = (1 - narrowest ICA diameter/diameter of distal cervical ICA) x 100. Mild - <50% stenosis. Moderate - 50-69% stenosis. Severe - 70-94% stenosis. Near occlusion - 95-99% stenosis. Occluded - 100% stenosis. IMPRESSION: Normal neck CTA.
--- NOTE | 2019-03-07 02:14 | XR ---
EXAM: XR Chest, 1 View CLINICAL HISTORY: ITS.REASON XR Reason: altered mental status TECHNIQUE: Frontal view of the chest. COMPARISON: No relevant prior studies available. FINDINGS: Lungs: Unremarkable. No consolidation. Pleural space: Unremarkable. No pneumothorax. Heart: No pneumomediastinum. Mediastinum: Unremarkable. Bones/joints: No definite fracture. IMPRESSION: No acute findings.
[2019-03-07 02:16] LABS: Troponin I 0.039 ng/mL (0.000-0.034)
[2019-03-07] MEDS ORDERED: LORazepam 2 MG/ML INJ IV STA ×3 (02:31→03:57)
[2019-03-07] MEDS ORDERED: levETIRAcetam IV 500 MG in SODIUM CHLORIDE 0.9% 100 ML IVPB STA (03:00)
--- NOTE | 2019-03-07 03:13 | ED ---
Altered Mental Status HPI - General Chief Complaint: Altered Mental Status Stated Complaint: Vomiting Time Seen by Provider: 03/07/19 01:30 Source: patient, EMS Mode of arrival: EMS Limitations: altered mental status (Patient appears to have expressive aphasia. Speech is clear but appears to be word salad) - History of Present Illness Initial Comments: 's patient is a 74-year-old woman brought by ambulance to be evaluated for altered mental status. The history comes mainly from the patient's . He reports that she has not been feeling well for number days, including having some headaches he states that she indicated the pain was all across the frontal head. The patient has been having issues with weakness as well. She was not wanting to get out of bed much due to weakness. He states she is also been having some difficulty communicating with him. She was in her room tonight and called him around 11 PM, and he went to check her and she had vomited. When the headache was not improving tonight he felt that she should be seen and called EMS. MD Complaint: altered mental status -: days(s) Severity: moderate Consistency of Symptoms: getting worse Associated Symptoms: headaches Treatments Prior to Arrival: oxygen - Related Data Home Medications Medication Instructions Recorded Confirmed Aspirin [Adult Low Dose Aspirin EC] 81 mg PO DAILY 05/28/16 04/11/17 Insulin Detemir (Levemir) [Levemir] 5 - 10 unit SQ HS 05/28/16 04/11/17 Lisinopril [Zestril] 10 mg PO DAILY 05/28/16 04/11/17 metFORMIN HCL 1,000 mg PO AC-BRKFST 05/28/16 04/11/17 metFORMIN HCL [Glucophage] 500 mg PO AC-SUPPER 05/28/16 04/11/17 Insulin Aspart [NovoLOG Flexpen] 2 - 4 units SQ AC-TID PRN 05/29/16 04/11/17 Multivitamins, Thera [Multivitamin 1 tab PO DAILY 05/29/16 04/11/17 (formulary)] Vitamin B Complex 1 cap PO DAILY 05/29/16 04/11/17 Atenolol [Tenormin] 50 mg PO DAILY 04/11/17 04/11/17 Ferrous Sulfate [Iron (65 MG 325 mg PO DAILY 04/11/17 04/11/17 Elemental)] Previous Rx's Medication Instructions Recorded Hydrocodone/Acetaminophen [[place] 1 tab PO Q6HR PRN #12 tab 02/28/19 5-325] Ibuprofen [Motrin] 600 mg PO Q8HR PRN #20 tab 02/28/19 Allergies Allergy/AdvReac Type Severity Reaction Status Date / Time shellfish derived Allergy Dyspnea Verified 03/07/19 01:32 Sulfa (Sulfonamide Allergy Rash/Hives Verified 03/07/19 01:32 Antibiotics) venom-honey bee Allergy Swelling Verified 03/07/19 01:32 Review of Systems ROS Statement: Those systems with pertinent positive or pertinent negative responses have been documented in the HPI. ROS Other: All systems not noted in ROS Statement are negative. Limitations: ROS unobtainable due to patients medical condition (Expressive aphasia) Constitutional: Denies: fever Respiratory: Denies: cough Cardiovascular: Denies: chest pain Gastrointestinal: Reports: as per HPI, vomiting Neurological: Reports: headache, weakness, confusion Past Medical History Past Medical History: Cancer, Diabetes Mellitus, GERD/Reflux, Hyperlipidemia, Hypertension Additional Past Medical History / Comment(s): anemia, chronic back pain, DIVERT ICULOSIS(PER COLONOSCOPY), KIDNEY STONE 2012(PASSED IT),? CA- PT STATED THAT [address] HAD DONE AN EKG ON HER AND ASKED HER -WHEN DIDYOU HAVE A HEART ATTACK?. UTERINE CA HAD SX ONLY, ECZEMA ON HANDS. RECENT DIFFICULTY SWALLOWING CAME IN AND HAD LAP BAND LOOSED History of Any Multi-Drug Resistant Organisms: None Reported Past Surgical History: Back Surgery, Bariatric Surgery, Hysterectomy, Tonsillectomy Additional Past Surgical History / Comment(s): lap band, carpal tunnel,LT ear drum surgery, cervical fusion, COLONOSCOPY 2012, TOTAL HYSTERECTOMY, D/T CANCER.SUE CATARACTS. BARIUM SWALLOW 05-28-16. Past Anesthesia/Blood Transfusion Reactions: No Reported Reaction Past Psychological History: No Psychological Hx Reported Smoking Status: Former smoker Past Alcohol Use History: None Reported Past Drug Use History: None Reported - Past Family History Father Family Medical History: Diabetes Mellitus Additional Family Medical History / Comment(s): PACEMAKER Mother Family Medical History: Dementia Additional Family Medical History / Comment(s): ALZHEIMERS General Exam Limitations: no limitations General appearance: alert, in distress Head exam: Present: atraumatic, normocephalic Eye exam: Present: normal appearance, PERRL, other (There is gaze deviation with patient looking to her right). Absent: EOMI, scleral icterus, conjunctival injection ENT exam: Present: normal oropharynx, mucous membranes dry Neck exam: Present: normal inspection, full ROM. Absent: tenderness Respiratory exam: Present: normal lung sounds bilaterally. Absent: respiratory distress, wheezes, rales, rhonchi, stridor Cardiovascular Exam: Present: regular rate, normal rhythm, normal heart sounds. Absent: systolic murmur, diastolic murmur, rubs, gallop GI/Abdominal exam: Present: soft. Absent: distended, tenderness, guarding, rebound, rigid, mass Extremities exam: Present: normal inspection, normal capillary refill. Absent: pedal edema, calf tenderness Back exam: Present: normal inspection Neurological exam: Present: alert. Absent: oriented X3 Expanded Neurological exam: Present: expressive aphasia, protecting the airway. Absent: ataxia Speech: Present: expressive aphasia Cranial nerves: Gag Reflex: Normal, Tongue Deviation: Normal Motor strength exam: RUE: 5, LUE: 5, RLE: 5, LLE: 5 Eye Response: (4) open spontaneously Motor Response: (6) obeys commands Verbal Response: (3) inappropriate words Skin exam: Present: warm, dry, intact, normal color. Absent: rash Course Vital Signs 03/07/19 03/07/19 01:17 02:30 Temperature 98.9 F Pulse Rate 61 66 Respiratory 20 16 Rate Blood Pressure 106/87 174/64 O2 Sat by Pulse 98 96 Oximetry - Reevaluation(s) Reevaluation #1: 03/07/19 02:51 It is somewhat difficult to elicit the exact time that symptoms started, as the patient's has some difficulty characterizing what exactly the weakness involved and what exactly the speech difficulty in tail. Reevaluation #2: 03/07/19 03:58 The patient's remained post ictal when EMS arrived to transport the patient, and given the lack of reflexive airway protection, decision was made to intubate patient for airway protection. I did discuss decision with family and they're in agreement. The patient was intubated without complication, please see the procedure note. Procedures - Intubation Paralytic: Succinylcholine Mg Given: 100 Laryngoscope: Bartolo Size: 3 ET Tube Size: 7.5 Tube Secured Depth (cm): 23 Tube Secured Location: lips Tube Placement Confirmation: visualized tube passing through cords, equal breath sounds bilaterally, no breath sounds over epigastrium, confirmation by capnometry Patient Tolerated Procedure: well Intubation Complications: none Medical Decision Making - Medical Decision Making Patient 74-year-old woman with concern for altered mental status, possible stroke. The patient's undergoing stroke robot evaluation when she had a tonic- clonic seizure. The seizure did stop and just as Ativan was being given. Case discussed with . There is concerned about the inability to directly pinpoint the time of onset given that the patient has been having some symptoms going back for days now. Therefore patient not TPA candidate. Dr. Arizmendi will transfer patient to [place] for admission to the neuro unit there - Lab Data Result diagrams: 03/07/19 01:25 03/07/19 01:25 Lab Results 03/07/19 03/07/19 03/07/19 Range/Units 01:12 01:25 01:25 WBC 6.4 (3.8-10.6) k/uL RBC 4.10 (3.80-5.40) m/uL Hgb 11.4 (11.4-16.0) gm/dL Hct 34.8 (34.0-46.0) % MCV 84.8 (80.0-100.0) fL MCH 27.9 (25.0-35.0) pg MCHC 32.9 (31.0-37.0) g/dL RDW 14.3 (11.5-15.5) % Plt Count 283 (150-450) k/uL Neutrophils % 69 % Lymphocytes % 16 % Monocytes % 6 % Eosinophils % 6 % Basophils % 1 % Neutrophils # 4.4 (1.3-7.7) k/uL Lymphocytes # 1.0 (1.0-4.8) k/uL Monocytes # 0.4 (0-1.0) k/uL Eosinophils # 0.4 (0-0.7) k/uL Basophils # 0.1 (0-0.2) k/uL PT (9.0-12.0) sec INR (<1.2) APTT (22.0-30.0) sec Sodium 142 (137-145) mmol/L Potassium 4.4 (3.5-5.1) mmol/L Chloride 110 H (98-107) mmol/L Carbon Dioxide 21 L (22-30) mmol/L Anion Gap 11 mmol/L BUN 24 H (7-17) mg/dL Creatinine 0.90 (0.52-1.04) mg/dL Est GFR (CKD-EPI)AfAm 74 (>60 ml/min/1.73 sqM) Est GFR (CKD-EPI)NonAf 64 (>60 ml/min/1.73 sqM) Glucose 112 H (74-99) mg/dL POC Glucose (mg/dL) 108 H (75-99) mg/dL POC Glu Sales Project Engineer ID Ryann Hernandez Calcium 11.0 H (8.4-10.2) mg/dL Total Bilirubin 0.8 (0.2-1.3) mg/dL AST 29 (14-36) U/L ALT 34 (9-52) U/L Alkaline Phosphatase 59 (38-126) U/L Total Creatine Kinase (30-135) U/L CK-MB (CK-2) (0.0-2.4) ng/mL CK-MB (CK-2) Rel Index Troponin I (0.000-0.034) ng/mL Total Protein 7.1 (6.3-8.2) g/dL Albumin 4.0 (3.5-5.0) g/dL 03/07/19 03/07/19 03/07/19 Range/Units 01:25 01:25 01:33 WBC (3.8-10.6) k/uL RBC (3.80-5.40) m/uL Hgb (11.4-16.0) gm/dL Hct (34.0-46.0) % MCV (80.0-100.0) fL MCH (25.0-35.0) pg MCHC (31.0-37.0) g/dL RDW (11.5-15.5) % Plt Count (150-450) k/uL Neutrophils % % Lymphocytes % % Monocytes % % Eosinophils % % Basophils % % Neutrophils # (1.3-7.7) k/uL Lymphocytes # (1.0-4.8) k/uL Monocytes # (0-1.0) k/uL Eosinophils # (0-0.7) k/uL Basophils # (0-0.2) k/uL PT 10.7 (9.0-12.0) sec INR 1.0 (<1.2) APTT 20.7 L (22.0-30.0) sec Sodium (137-145) mmol/L Potassium (3.5-5.1) mmol/L Chloride (98-107) mmol/L Carbon Dioxide (22-30) mmol/L Anion Gap mmol/L BUN (7-17) mg/dL Creatinine (0.52-1.04) mg/dL Est GFR (CKD-EPI)AfAm (>60 ml/min/1.73 sqM) Est GFR (CKD-EPI)NonAf (>60 ml/min/1.73 sqM) Glucose (74-99) mg/dL POC Glucose (mg/dL) 116 H (75-99) mg/dL POC Glu Sales Project Engineer ID Liliane Tapia A Calcium (8.4-10.2) mg/dL Total Bilirubin (0.2-1.3) mg/dL AST (14-36) U/L ALT (9-52) U/L Alkaline Phosphatase (38-126) U/L Total Creatine Kinase 58 (30-135) U/L CK-MB (CK-2) 0.4 (0.0-2.4) ng/mL CK-MB (CK-2) Rel Index 0.7 Troponin I 0.039 H* (0.000-0.034) ng/mL Total Protein (6.3-8.2) g/dL Albumin (3.5-5.0) g/dL Disposition Clinical Impression: Seizure, Altered mental status, Elevated troponin I level Disposition: OTHER INSTITUTION NOT DEFINED Condition: Critical Is patient prescribed a controlled substance at d/c from ED?: No Referrals: Wendi Bonner MD [Primary Care Provider] - 1-2 days
[2019-03-07] MEDS ORDERED: MORPHINE SULFATE 4 MG/ML SYRINGE IV STA (03:41)
[2019-03-07] MEDS ORDERED: ROCURONIUM BROMIDE 10 MG/ML 10 ML VIAL IV ONE (03:58)
[2019-03-07] MEDS ORDERED: SUCCINYLCHOLINE CHLORIDE VIAL 200 MG/10 ML VIAL IV ONE (03:59)
[2019-03-07 04:26] VITALS: RESP 18
--- NOTE | 2019-03-07 04:30 | XR ---
EXAM: XR Chest, 1 View CLINICAL HISTORY: ITS.REASON XR Reason: Post Intubation TECHNIQUE: Frontal view of the chest. COMPARISON: No relevant prior studies available. FINDINGS: Lungs: Unremarkable. No consolidation. Pleural space: Unremarkable. No pneumothorax. Heart: No pneumomediastinum. Mediastinum: Unremarkable. Bones/joints: No definite fracture. Tubes, lines and devices: Endotracheal tube in proper placement. NG tube at the GE junction. IMPRESSION: Endotracheal tube in proper placement. NG tube at the GE junction. Consider advancing 5 cm.
[2019-03-07 04:58] VITALS: BP 124/60; PULSE 69
== END 2019-03-07 04:10 | disposition short-term general hospital (02) ==
LOC: EC 01:08
DX: R56.9 Unspecified convulsions (principal); R79.89 Other specified abnormal findings of blood chemistry; R41.82 Altered mental status, unspecified; R47.01 Aphasia; H51.8 Other specified disorders of binocular movement; R51 Headache; E11.9 Type 2 diabetes mellitus without complications; I10 Essential (primary) hypertension; D64.9 Anemia, unspecified; G89.29 Other chronic pain; I25.2 Old myocardial infarction; Z81.8 Family history of other mental and behavioral disorders; Z87.891 Personal history of nicotine dependence; Z88.2 Allergy status to sulfonamides; Z91.013 Allergy to seafood; Z91.030 Bee allergy status; Z79.4 Long term (current) use of insulin; Z79.82 Long term (current) use of aspirin; Z79.899 Other long term (current) drug therapy; Z85.42 Personal history of malignant neoplasm of other parts of uterus; Z90.710 Acquired absence of both cervix and uterus; R53.1 Weakness; Z98.1 Arthrodesis status
CPT/HCPCS: 36415; 93005; 80053; 82550; 82553; 84484; 85025; 85610; 85730; 71045; 70496; 70450; 70498; 99285; 31500; 96365; 96375 ×2; 96376; J0330; J2060; J2270; J1953; Q9967

== ENCOUNTER → 2022-03-13 | Outpatient (CLI) | payer MEDICARE ==
[2022-03-13 13:30] VITALS: BP 173/77; PULSE 60; RESP 13; TEMP 98.1; BMI 32.5
--- NOTE | 2022-03-13 13:54 | P.BASOAP ---
Subjective Progress Note Date: 03/13/22 Principal diagnosis: Morbid obesity Patient returns today. She would like more fluid added. She had 6 mL when she was too tight. 3 mL was added last visit. Does not feel much restriction. She would like more fluid added. No vomiting. Objective - Vital Signs Vital signs: Vital Signs Temp 98.1 F 03/13/22 13:21 Pulse 60 03/13/22 13:21 Resp 13 03/13/22 13:21 BP 173/77 03/13/22 13:21 Pulse Ox Intake & Output 03/12/22 03/13/22 03/13/22 18:59 06:59 18:59 Weight 80.739 kg - Exam Abdomen: Soft, nontender, nondistended Assessment/Plan (1) Morbid obesity Narrative/Plan: Patient would like further fluid added to her band. We'll add 2 mL for 4 5 mL total. The patient's lap band port was palpated. The site was aseptically prepped. The Correa needle was advanced into the port. A total of 2 ml of fluid was added. Pressure was held and a sterile dressing was applied. Plan: Date: 03/13/22 Initial Weight: 107.048 kg Initial BMI: 43.1 Current Weight: 80.739 kg Current BMI: 32.5 Type of Surgery: Total Volume in Band: 3 Previous Volume: Volume Removed: Volume Added: Band Size:
== END ==
LOC: BARWHC3 13:12
PROVIDERS: ATTEND Surgery
DX: E66.01 Morbid (severe) obesity due to excess calories (principal); Z46.51 Encounter for fitting and adjustment of gastric lap band; Z68.32 Body mass index [BMI] 32.0-32.9, adult; Z88.2 Allergy status to sulfonamides; Z91.013 Allergy to seafood; Z91.030 Bee allergy status; Z87.891 Personal history of nicotine dependence
CPT/HCPCS: 99212